=== PATIENT | female | born 1970 | race Caucasian/White ===

== ENCOUNTER 2017-02-28 10:09 | Emergency (ER) | payer OTHER ==
--- NOTE | 2017-02-28 11:54 | US ---
VENOUS ULTRASOUND OF EXTREMITY Indications: Bilateral leg pain for 4 days. Comparison: 11/26/2012 left looks at me DVT study. 05/06/2010 bilateral lower rylee-DVT study. FINDINGS: Multiple grayscale, color-flow and duplex Doppler images during bilateral lower extremity DVT ultrasound are obtained from the common femoral vein down through to the peroneal and posterior tibial veins. DEEP VENOUS THROMBOSIS: None. COMMON FEMORAL VEIN: Normal. PROXIMAL FEMORAL VEIN: Normal. MID TO DISTAL FEMORAL VEIN: Normal. POPLITEAL VEIN: Normal. PROXIMAL CALF VEINS: Normal. IMPRESSION: No deep venous thrombosis of the bilateral leg. Findings were called to Dr. Frederick at approximately 1150 hours on 02/28/2017.
== END 2017-02-28 13:33 | disposition home or self-care (01) ==
LOC: ED 10:09
DX: M79.661 Pain in right lower leg (principal); I10 Essential (primary) hypertension; D68.0 Von Willebrand disease; D68.51 Activated protein C resistance; Z86.718 Personal history of other venous thrombosis and embolism